=== PATIENT | male | born 2000 | race Two or more races ===

== ENCOUNTER 2020-10-11 21:25 | Emergency (ER) | payer OTHER ==
[~2020-10-11] VITALS: Ht 165.1 cm; Wt 59.0 kg
[~2020-10-11 21:25] MED LIST: NAPROXEN375 MG PO; PEPCID20 MG PO; SKELAXIN800 MG PO
== END 2020-10-11 23:55 | disposition home or self-care (01) ==
LOC: ER 21:25
DX: M26.69 Other specified disorders of temporomandibular joint (principal); M54.89 Other dorsalgia